=== PATIENT | male | born 1990 | race Caucasian/White ===

== ENCOUNTER 2021-02-27 19:53 | Emergency (ER) | payer OTHER, SELFPAY ==
[2021-02-27 20:10] VITALS: BP 134/73; PULSE 85; RESP 17; TEMP 36.8; O2SAT 99; BMI 23.7
[2021-02-27 20:29] LABS: COVID19 -Nasal RAPID POSITIVE (Negative)
--- NOTE | 2021-02-27 21:51 | ED_ITS ---
HPI - URI/Sore Throat General Chief Complaint: Upper Respiratory Symptoms Stated Complaint: sore throat, cough, congestion, headache Time Seen by Provider: 02/27/21 21:31 Source: patient Mode of arrival: Ambulatory Limitations: no limitations History of Present Illness HPI Narrative: This is a 30-year-old male who comes to the emergency department with complaint of 3 days of sore throat, some cough and congestion as well as headache. Patient denies any fevers. He denies any shortness of breath. He denies much any chest pain. He has had some mild nausea but no vomiting. He denies any diarrhea constipation. No abdominal pain. No urinary symptoms. Patient states he is otherwise healthy. He did have his COVID vaccination several months ago. He has recently traveled to [place] and just returned and states there was a significant amount of covid infection in the area. He is with the [employer]. Patient states because he was having some what he describes as mild symptoms he came to be tested. He denies any daily medications or medical issues. Review of Systems Review of Systems ROS Unobtainable: All systems reviewed & are unremarkable except as noted in HPI and below Patient History Social History Smoking Status: Current every day smoker Smoking Status: Current every day smoker tobacco type: vaping alcohol intake frequency: a few times a month Substance Use Type: does not use Exam Narrative Exam Narrative: GENERAL: Alert and oriented x three, male in mild distress. HEENT: Head normocephalic, atraumatic, EOMI, pupils reactive, face symmetric, moist mucous membranes NECK: Supple, full range of motion CARDIOVASCULAR: Regular rate and rhythm without murmurs, rubs or gallops. RESPIRATORY: Breath sounds equal bilaterally, no wheezes rales or rhonchi. No tachypnea accessory muscle use. Speaks in full sentences. Patient has mild dry cough all in the room. ABDOMEN: Soft, nontender. Normoactive bowel sounds all 4 quadrants. No guarding or rebound, rigidity, no mass : No CVA tenderness EXTREMITIES: Normal range of motion, no clubbing or edema. Neurovascularly intact NEUROLOGICAL: Cranial nerves II through XII grossly intact. Moving all extremities SKIN: Warm, dry, no petechiae, no rashes or lesions. Initial Vital Signs Initial Vital Signs: Vital Signs Temperature 98.3 F 02/27/21 20:10 Pulse Rate 85 02/27/21 20:10 Respiratory Rate 17 02/27/21 20:10 Blood Pressure 134/73 02/27/21 20:10 Pulse Oximetry 99 02/27/21 20:10 Course Orders Ordered: ED Orders 02/27/21 20:05 COVID19 -Nasal swab/Pre-Proc Stat Vital Signs Vital signs: Vital Signs - 8 hr 02/27/21 20:10 Temperature 98.3 F Pulse Rate 85 Respiratory Rate 17 Blood Pressure 134/73 Pulse Oximetry 99 MDM - URI/Sore Throat Lab Data Labs: Lab Results 02/27/21 Range/Units 20:05 SARS-CoV-2 (PCR) Positive H (Negative) MDM Narrative Medical decision making narrative: This is a 30-year-old male with positive COVID testing with normal vitals. Self quarantine instructions were given. All questions were answered. Patient denies any additional concerns today. Discharge Plan Departure Patient Disposition: Home Clinical Impression: COVID-19 virus infection Instructions: DI for COVID-19 (Suspected or Confirmed ) Activity Restrictions/Additional Instructions: *You have been diagnosed with covid infection. If you wish you may obtain a pulse oximeter for use at home to monitor. Please return to the ER if your pulse oximeter shows an O2 saturation less than 94%. You having worsening chest pain, shortness of breath, lightheadedness or passing out, persistent vomiting, new swelling in your extremities or other new or concerning symptoms. *What to do: * per recommendations from the CDC and the [facility] Department of Health * stay home except to get medical care. Restrict activities outside your home, except for getting medical care. Do not go to work, school, or public areas. Avoid using public transportation, ride sharing, or taxis. * separate yourself from other people in your home. * call ahead before visiting your doctor * Wear a face mask * Cover your coughs and sneezes * Clean your hands often * Avoid sharing household items * Clean all high-touch services every day * Monitor your symptoms and seek prompt medical attention if your illness is worsening, particularly with difficulty in breathing. Discussed continuing home isolation * for individuals with symptoms who are confirmed or suspected cases of COVID-19 and are directed to care for themselves at home, discontinue home isolation under the following conditions: 1. At least 72 hours have passed since recovery, defined as resolution of fever without the use of fever reducing medications, and improvement in respiratory symptoms (cough, shortness of breath) AND, 2. At least 7 days have passed since symptoms 1st appeared Individuals with laboratory confirmed COVID-19 who have not had any symptoms may discontinue home isolation when at least 7 days have passed since the date of their 1st COVID-19 diagnostic test and have had no subsequent illness
== END 2021-02-27 22:33 | disposition home or self-care (01) ==
PROVIDERS: Emergency Provider Emergency Medicine
DX: U07.1 COVID-19 (principal); R05 Cough; R51.9 Headache, unspecified
CPT/HCPCS: 87635; 99281; 99282; C9803